=== PATIENT | female | born 1990 | race Caucasian/White ===

== ENCOUNTER 2017-01-30 06:57 | Day surgery (SDC) | payer OTHER ==
--- NOTE | 2017-01-29 13:54 | HP ---
DATE OF ADMISSION: 01/30/2017 HISTORY OF PRESENT ILLNESS: A 26-year-old female patient with a long history of recurrent sore throats, chronic tonsillitis treated with multiple courses of antibiotics without benefit. Now admitted to the hospital for corrective surgery. Past medical history, allergies, daily meds, medical conditions, clotting disorders, family history, review of systems, negative. PRIOR SURGICAL HISTORY: Cholecystectomy. HABITS: Alcohol social. Tobacco or recreational drugs, none. PHYSICAL EXAMINATION: GENERAL: Well-developed, well-nourished female patient in no acute distress. HEENT: Head normocephalic, no masses or deformities. Ears and tympanic membranes are normal. Nose clear. Oropharynx, tonsils 3+ cryptic and chronically infected. NECK: Shotty cervical lymphadenopathy. CHEST: Clear to P and A. HEART: Regular sinus rhythm without murmur. ABDOMEN: Soft. Bowel sounds normal. No masses or megaly. EXTREMITIES: Full range of motion without deformity. NEUROLOGIC: Physiologic. PELVIC AND RECTAL: Not done. IMPRESSION: Chronic tonsillitis. RECOMMENDATIONS: Admit for surgery. Dictated By: Ruel Hidalgo MD /[email or web address]/[email or web address] /Document#: [id number]
[2017-01-29 15:40] VITALS: BMI 36.3
[2017-01-30] VITALS (18 sets, daily range): BP systolic 101–134; BP diastolic 46–80; PULSE 54–86; RESP 15–25; Ht 157.5 cm; Wt 88.7 kg
[~2017-01-30] VITALS: Ht 157.5 cm; Wt 88.7 kg
[2017-01-30] MEDS ORDERED: PROPOFOL 200 MG INJ ONE (07:00)
[2017-01-30] MEDS ORDERED: ROCURONIUM 50 MG INJ ONE (07:00)
[2017-01-30] MEDS ORDERED: MIDAZOLAM 1 MG/ML 2 ML INJ ONE (10:15)
[2017-01-30] MEDS ORDERED: METOCLOPRAMIDE 10 MG INJ ONE (10:15)
[2017-01-30] MEDS ORDERED: NEOSTIGMINE 3 MG/3 ML SYRINGE ONE (10:20)
[2017-01-30] MEDS ORDERED: ONDANSETRON 4 MG INJ ONE (10:20)
[2017-01-30] MEDS ORDERED: FENTAnyl 50 MCG/ML VIAL ONE (10:21)
[2017-01-30] MEDS ORDERED: GLYCOPYRROLATE 0.4 MG INJ ONE (10:38)
[2017-01-30] MEDS ORDERED: HYDROmorphONE (0.2 MG/ML) 10ML SYG IV ONE (11:06)
--- NOTE | 2017-01-30 11:12 | SIPON ---
Date/Time of Note Date/Time of Note DATE: 01/30/17 TIME: 11:11 Operative Report Preoperative Diagnosis chronic tonsillitis Postoperative Diagnosis same Operation/Procedure Performed tonsillectyomy Surgeon andre signature line [employer] administrative assistant none Anesthesia: general Estimated blood loss: 10 - 50 ml's Transfusion Required none Specimen to path Grafts/Implants none Complications none CECILIA PENA MD Jan 30, 2017 11:12
[2017-01-30] MEDS ORDERED: OXYCODONE/ACETAMINOPHEN (5/325) TAB PO PRN ×2 (11:30)
[2017-01-30] MEDS ORDERED: ONDANSETRON 4 MG INJ IV PRN (11:30)
[2017-01-30] MEDS ORDERED: HYDROmorphONE (0.2 MG/ML) 10ML SYG IV PRN ×3 (11:30)
--- NOTE | 2017-01-31 10:25 | OPR ---
DATE OF OPERATION: 01/30/2017 PREOPERATIVE DIAGNOSIS: Chronic tonsillitis. POSTOPERATIVE DIAGNOSIS: Chronic tonsillitis. OPERATION PERFORMED: Tonsillectomy. OPERATIVE PROCEDURE: Patient brought to the operating room under parental sedation, general oral endotracheal anesthesia, with the patient in the supine position. Sterile sheets and drapes applied. A medium blade McIvor mouth gag inserted. Tonsillectomy performed with a dissection technique. Bleeding points were electrocoagulated for hemostasis. Tonsillar fossa were irrigated, suctioned and were dry at the termination of the procedure. Patient awakened and extubated in the operating room, returned to recovery in excellent condition. ESTIMATED BLOOD LOSS: Approximately 25 mL. COMPLICATIONS: None. Dictated By: Ruel Hidalgo MD /[email or web address]/[email or web address] /Document#: [id number]
== END 2017-01-30 13:33 | disposition home or self-care (01) ==
LOC: SDS 06:57
PROVIDERS: ATTEND Otolaryngology Otolaryngology/Facial Plastic Surgery
DX: J35.01 Chronic tonsillitis (principal)
CPT/HCPCS: 42826; 88302; J1170; J2250; J2765; J3010; Z7512; Z7610; J2405; J2710